=== PATIENT | male | born 1940 | race Caucasian/White ===

== ENCOUNTER 2024-10-25 13:54 | Inpatient (IN) | payer MEDICARE, OTHER ==
[~2024-10-25] VITALS: Ht 185.4 cm; Wt 79.5 kg
[2024-10-27 10:01] VITALS: BP 127/75; TEMP 97.9
[2024-10-27 10:23] VITALS: BP 127/75; TEMP 97.9
[2024-10-27 14:00] VITALS: BP 117/65; TEMP 98; O2SAT 93
[2024-10-27] MEDS ORDERED: CHOL-35 PO (14:15)
[2024-10-27] MEDS ORDERED: TAMS-3 PO (14:15)
[2024-10-27] MEDS ORDERED: PRED20TA PO (14:15)
[2024-10-27] MEDS ORDERED: PYRI100T18 PO (14:15)
[2024-10-27] MEDS ORDERED: PETR113P TP (14:15)
[2024-10-27] MEDS ORDERED: HYDR453. TP (14:15)
[2024-10-27] MEDS ORDERED: CITA20TA19 PO (14:15)
[2024-10-27] MEDS ORDERED: ACET325T53 PO (14:15)
[2024-10-27] MEDS ORDERED: IBUP-1953 PO (14:15)
[2024-10-27] MEDS ORDERED: ALLO300T2 PO (14:15)
[2024-10-27] MEDS ORDERED: CYAN-51 PO (14:15)
[2024-10-27] MEDS ORDERED: ATOR10TA PO (14:15)
[2024-10-27] MEDS ORDERED: LIDO30AD10 TD (14:15)
[2024-10-27] MEDS ORDERED: ACETAMINOPHEN 325 MG TABLET-SA PATIENTS-PAIN ONLY PO PRN (15:15)
[2024-10-27 16:00] VITALS: BP 134/65; TEMP 97.9; O2SAT 93
[2024-10-27] MEDS ORDERED: HYDROCORTISONE 1% RECTAL CREAM 28.35 GM TUBE RC SCH (17:00)
[2024-10-27] MEDS ORDERED: ROSU10TA2 PO (17:27)
[2024-10-27] MEDS: HYDROCORTISONE 1% CREAM 30 GM TUBE TP SCH (17:43)
[2024-10-27 20:00] VITALS: BP 124/63; TEMP 98.2; O2SAT 93
[2024-10-27] MEDS: [UNRECOGNIZED DRUG - OTHER] PO SCH (20:23)
[2024-10-27] MEDS: TAMSULOSIN HCL 0.4 MG CAP.SR.24H PO SCH (20:23)
[2024-10-27] MEDS: ROSUVASTATIN 10 MG PO SCH (20:23)
[2024-10-27] MEDS ORDERED: ATORVASTATIN 10 MG TABLET PO SCH (21:00)
[2024-10-28 05:00] VITALS: BP 142/76; TEMP 97.7; O2SAT 93
[2024-10-28 07:18] LABS: PLATELET COUNT (AUTO) 241 K/uL (152-348); RED BLOOD CELL COUNT(AUTO) 3.73 MIL/uL (4.06-5.63); RED CELL DISTRIBUTION WIDTH 13.7 % (12.1-16.2); WHITE BLOOD COUNT (AUTO) 7.2 K/uL (3.6-10.2)
[2024-10-28 07:26] LABS: CREATININE 0.6 mg/dL (0.6-1.3); SODIUM SERUM 135 mmol/L (136-145); UREA NITROGEN, BLOOD 14 mg/dL (7-18)
[2024-10-28 07:46] VITALS: BP 137/77; TEMP 97; O2SAT 95
[2024-10-28] MEDS: CITALOPRAM 20 MG TABLET PO SCH (08:46)
[2024-10-28] MEDS: CYANOCOBALAMIN 1,000 MCG TABLET PO SCH (08:47)
[2024-10-28] MEDS: PYRIDOXINE HCL 100 MG TABLET PO SCH (08:47)
[2024-10-28] MEDS: CHOLECALCIFEROL 1,000 UNIT TABLET PO SCH (08:48)
[2024-10-28] MEDS: ALLOPURINOL 300 MG TABLET PO SCH (08:48)
[2024-10-28] MEDS: LIDOCAINE 5% PATCH TD SCH (08:48)
[2024-10-28 15:29] VITALS: BP 110/65; TEMP 97.5; O2SAT 98
[2024-10-28] MEDS: REMEDY ESSENTIAL ZINC PASTE 113 GM TOP SCH (21:01)
[2024-10-28 21:40] VITALS: BP 109/60; TEMP 97.7; O2SAT 97
[2024-10-29 06:19] VITALS: BP 143/77; TEMP 97.9; O2SAT 94
[2024-10-29 07:58] VITALS: BP_SYST 120; BP_SYST 149; BP_DIAS 63; BP_DIAS 78; TEMP 97.6; TEMP 98; O2SAT 97; O2SAT 99
[2024-10-29] MEDS: NEOMY/BACITRAC/POLYMI OINT 28.35 GM TUBE TOP SCH (09:02)
[2024-10-29 16:23] VITALS: BP 136/64; TEMP 97.8; O2SAT 93
[2024-10-29 20:07] VITALS: BP 131/70; TEMP 97.5; O2SAT 93
[2024-10-30 05:50] VITALS: BP 146/79; TEMP 97.7; O2SAT 94
[2024-10-30 08:22] VITALS: BP 151/79; TEMP 98.2; O2SAT 95
[2024-10-30 15:50] VITALS: BP 115/67; TEMP 97.1; O2SAT 93
[2024-10-30 20:47] VITALS: BP 106/66; TEMP 97.9; O2SAT 91
[2024-10-31 06:14] VITALS: BP 150/84; TEMP 97.6; O2SAT 94
[2024-10-31 07:49] VITALS: BP 150/83; TEMP 97.8; O2SAT 95
[2024-10-31 16:01] VITALS: BP 122/72; TEMP 97.9; O2SAT 93
[2024-10-31 20:00] VITALS: BP 128/74; TEMP 98.1; O2SAT 95
[2024-11-01 05:00] VITALS: BP 139/80; TEMP 97.8; O2SAT 95
[2024-11-01 07:48] VITALS: BP 135/69; TEMP 97.8; O2SAT 94
[2024-11-01 15:56] VITALS: BP 114/65; TEMP 97.8; O2SAT 93
[2024-11-01 19:57] VITALS: BP 97/62; TEMP 97.9; O2SAT 94
[2024-11-02 05:40] VITALS: BP 108/71; TEMP 97.9; O2SAT 94
[2024-11-02 07:45] VITALS: BP 133/85; TEMP 97.6; O2SAT 98
[2024-11-02 13:56] LABS: PLATELET COUNT (AUTO) 282 K/uL (152-348); RED BLOOD CELL COUNT(AUTO) 4.16 MIL/uL (4.06-5.63); RED CELL DISTRIBUTION WIDTH 14.2 % (12.1-16.2); WHITE BLOOD COUNT (AUTO) 10.8 K/uL (3.6-10.2)
[2024-11-02 14:13] LABS: CREATININE 0.7 mg/dL (0.6-1.3); SODIUM SERUM 129 mmol/L (136-145); UREA NITROGEN, BLOOD 17 mg/dL (7-18)
[2024-11-02] MEDS: IV NS 1000 ML 1,000 ML IV ONE ×2 (14:45→16:21)
[2024-11-02 16:00] VITALS: BP 108/49; TEMP 97.6; O2SAT 97
[2024-11-02 20:00] VITALS: BP 100/63; TEMP 97.5; O2SAT 94
[2024-11-03 08:00] VITALS: BP 101/65; TEMP 98.3; O2SAT 93
[2024-11-03 08:24] LABS: CREATININE 0.7 mg/dL (0.6-1.3); SODIUM SERUM 136 mmol/L (136-145); UREA NITROGEN, BLOOD 15 mg/dL (7-18)
[2024-11-03 15:51] LABS: *BILIRUBIN,URIN NEGATIVE (NEGATIVE); *BLOOD, URINE NEGATIVE (NEGATIVE); *CLARITY,URINE CLEAR (CLEAR); *COLOR,URINE YELLOW (YELLOW); *KETONES,URINE NEGATIVE (NEGATIVE); *PROTEIN,URINE NEGATIVE (NEGATIVE); *UROBILINOGEN,URINE 0.2 E.U./dl (NORMAL); LEUKOCYTE ESTERASE ,URINE NEGATIVE (NEGATIVE); NITRITE, URINE NEGATIVE (NEGATIVE); UGLUCOSE NEGATIVE (NEGATIVE)
[2024-11-03 18:36] VITALS: BP 108/66; TEMP 97.7; O2SAT 95
[2024-11-03 20:00] VITALS: BP 98/55; TEMP 97.5; O2SAT 96
[2024-11-04 05:50] VITALS: BP 103/62; TEMP 98.3; O2SAT 93
[2024-11-04 07:15] VITALS: BP 107/67; TEMP 97.8; O2SAT 95
[2024-11-04 16:20] VITALS: BP 103/64; TEMP 98; O2SAT 95
[2024-11-04 20:04] VITALS: BP 95/45; TEMP 98.3; O2SAT 95
[2024-11-04 22:19] VITALS: BP 106/23; TEMP 98; O2SAT 95
[2024-11-05 05:58] VITALS: BP 115/69; TEMP 97.6; O2SAT 99
[2024-11-05 07:59] VITALS: BP 109/64; TEMP 98; O2SAT 95
[2024-11-05 15:52] VITALS: BP 115/69; TEMP 97.8; O2SAT 100
[2024-11-05 21:56] VITALS: BP 110/0; TEMP 98.7; O2SAT 95
[2024-11-06 06:46] VITALS: BP 103/60; TEMP 98.2; O2SAT 95
[2024-11-06 11:14] VITALS: BP 101/60; TEMP 98.2; O2SAT 95
[2024-11-06 15:40] VITALS: BP 105/61; TEMP 98.7; O2SAT 95
[2024-11-06 20:00] VITALS: BP 102/59; TEMP 98.5; O2SAT 96
[2024-11-07] MEDS: ACETAMINOPHEN 325 MG TABLET PO PRN (03:40)
[2024-11-07 04:38] VITALS: BP 118/63; TEMP 98.3; O2SAT 95
[2024-11-07 06:32] LABS: PLATELET COUNT (AUTO) 173 K/uL (152-348); RED BLOOD CELL COUNT(AUTO) 3.96 MIL/uL (4.06-5.63); RED CELL DISTRIBUTION WIDTH 13.9 % (12.1-16.2); WHITE BLOOD COUNT (AUTO) 14.0 K/uL (3.6-10.2)
[2024-11-07 07:36] VITALS: BP 94/58; TEMP 97.9; O2SAT 94
[2024-11-07] MEDS ORDERED: HYDROCODONE/APAP 5-325MG TABLET PO ONE (13:15)
[2024-11-07] MEDS ORDERED: HYDROCODONE/APAP 5-325MG TABLET PO PRN (13:30)
[2024-11-07 16:00] VITALS: BP 104/64; TEMP 98.7; O2SAT 97
[2024-11-07 19:54] VITALS: BP 110/66; TEMP 97.8; O2SAT 94
[2024-11-08 06:07] VITALS: BP 107/63; TEMP 98.2; O2SAT 93
[2024-11-08 06:22] LABS: PLATELET COUNT (AUTO) 196 K/uL (152-348); RED BLOOD CELL COUNT(AUTO) 3.88 MIL/uL (4.06-5.63); RED CELL DISTRIBUTION WIDTH 13.7 % (12.1-16.2); WHITE BLOOD COUNT (AUTO) 8.3 K/uL (3.6-10.2)
[2024-11-08 08:00] VITALS: BP 118/69; TEMP 98.3; O2SAT 95
[2024-11-08 11:37] VITALS: BP 99/56; TEMP 97.6; O2SAT 95
[2024-11-08 15:16] VITALS: BP 117/69; TEMP 97.6; O2SAT 94
[2024-11-08 20:17] VITALS: BP 102/60; TEMP 98.1; O2SAT 92
[2024-11-09 05:05] VITALS: BP 108/66; TEMP 98; O2SAT 94
[2024-11-09 07:36] VITALS: BP 112/67; TEMP 98.8; O2SAT 95
[2024-11-09 08:00] VITALS: BP 111/65; TEMP 98.1; O2SAT 95
[2024-11-09] MEDS ORDERED: IV NORMAL SALINE 1000 ML BAG IV ONE (11:15)
[2024-11-09] MEDS ORDERED: IV NS 1000 ML 1,000 ML IV ONE (11:15)
[2024-11-09] MEDS: IV NS 1000 ML 1,000 ML IV PRN (11:40)
[2024-11-09 15:46] VITALS: BP 113/62; TEMP 97.9; O2SAT 95
[2024-11-09 23:28] VITALS: BP 118/69; TEMP 97.9; O2SAT 94
[2024-11-10 00:10] LABS: *BILIRUBIN,URIN NEGATIVE (NEGATIVE); *BLOOD, URINE NEGATIVE (NEGATIVE); *CLARITY,URINE CLEAR (CLEAR); *COLOR,URINE YELLOW (YELLOW); *KETONES,URINE NEGATIVE (NEGATIVE); *PROTEIN,URINE NEGATIVE (NEGATIVE); *UROBILINOGEN,URINE 0.2 E.U./dl (NORMAL); LEUKOCYTE ESTERASE ,URINE NEGATIVE (NEGATIVE); NITRITE, URINE NEGATIVE (NEGATIVE); UGLUCOSE NEGATIVE (NEGATIVE)
[2024-11-10 06:32] VITALS: BP 115/64; TEMP 98; O2SAT 94
[2024-11-10 07:58] VITALS: BP 126/75; TEMP 98.4; O2SAT 98
[2024-11-10 16:15] VITALS: BP 111/64; TEMP 98.3; O2SAT 94
== END 2024-11-10 16:10 | disposition home health service (06) | DRG 947 ==
LOC: UNDOADMIN 10-27 12:00 → UNDODISIN 11-10 16:10
PROVIDERS: ADMIT Physical Medicine & Rehabilitation Pain Medicine; ATTEND Physical Medicine & Rehabilitation Pain Medicine
DX: R53.1 Weakness (principal); G93.41 Metabolic encephalopathy; I50.32 Chronic diastolic (congestive) heart failure; E87.1 Hypo-osmolality and hyponatremia; E78.5 Hyperlipidemia, unspecified; F03.90 Unspecified dementia, unspecified severity, without behavioral disturbance, psychotic disturbance, mood disturbance, and anxiety; I11.0 Hypertensive heart disease with heart failure; L30.9 Dermatitis, unspecified; M16.11 Unilateral primary osteoarthritis, right hip; M10.9 Gout, unspecified; M81.0 Age-related osteoporosis without current pathological fracture; R73.03 Prediabetes; D72.829 Elevated white blood cell count, unspecified; E86.0 Dehydration; R62.7 Adult failure to thrive; Z91.81 History of falling; R29.6 Repeated falls; I95.1 Orthostatic hypotension; D63.8 Anemia in other chronic diseases classified elsewhere
CPT/HCPCS: 36415; 71045; 73502; 84443; 85025; 87086; 93307; 97535-GO-CO; A4663; J7040; J7512